=== PATIENT | female | born 1950 | race African-American/Black ===

== ENCOUNTER 2017-06-06 10:33 | Emergency (ER) | payer OTHER, MEDICAID ==
[~2017-06-06] VITALS: Ht 167.6 cm; Wt 90.7 kg
[~2017-06-06 10:33] MED LIST: GABA-497 PO; INSLANTI SC; INSLISPI SC; LETR2.5T6 PO; LEVO50TA7 PO; LOSA50TA6 PO; SIMV10TA84 PO
[2017-06-06] MEDS ORDERED: cloNIDine HCL 0.1 MG TAB PO ONE (11:15)
[2017-06-06 11:43] VITALS: BP 187/94
[2017-06-06 11:49] LABS: CONDITION Y; DEFINITIVE SEE PRINTOUT; Hematocrit 31.8 % (36.0-46.0); Hemoglobin 10.7 g/dL (12.2-16.2); Mean Corpuscular Hemoglobin 36.6 pg (28.0-32.0); Mean Corpuscular Hgb Conc. 33.8 g/dL (32.0-36.0); Mean Corpuscular Volume 108.4 fL (80.0-100.0); Mean Platelet Volume 8.3 fL (7.4-10.4); Platelet Count (auto) 163 10^3/uL (140-450)
[2017-06-06 11:50] LABS: Red Cell Distribution Width 23.7 % (11.6-16.0)
[2017-06-06 12:03] LABS: White Blood Cell 1.6 10^3/uL (4.4-10.8)
[2017-06-06 12:04] LABS: Metamyelocytes % 0; Myelocytes % 0; Promyelocytes % 0; Reactive Lymphocytes 0
[2017-06-06 12:13] LABS: Albumin 3.4 g/dL (3.4-5.0); BUN/Creatinine Ratio 5.7; Bilirubin, Total 0.8 mg/dL (0.2-1.0); Calcium 9.1 mg/dL (8.5-10.1); Potassium 3.8 mmol/L (3.5-5.1); Total Protein 6.9 g/dL (6.4-8.2)
[2017-06-06 13:54] LABS: Anisocytosis Slight; Macrocytosis Slight; Platelet Estimate Adequate
== END 2017-06-06 12:49 | disposition home or self-care (01) ==
LOC: EDBD 10:33 → ER 10:33
DX: R51 Headache (principal); D72.819 Decreased white blood cell count, unspecified; I16.0 Hypertensive urgency; E11.9 Type 2 diabetes mellitus without complications; I10 Essential (primary) hypertension; E78.5 Hyperlipidemia, unspecified; Z86.711 Personal history of pulmonary embolism; Z79.4 Long term (current) use of insulin; Z88.5 Allergy status to narcotic agent; Z88.0 Allergy status to penicillin
CPT/HCPCS: 36415; 70450; 80053; 85007; 85027; 94761